=== PATIENT | female | born 1995 | race Caucasian/White ===

== ENCOUNTER 2016-06-30 19:54 | Emergency (ER) | payer SELFPAY ==
[~2016-06-30] VITALS: Ht 162.6 cm; Wt 57.4 kg
[2016-06-30 20:10] VITALS: Ht 162.6 cm; Wt 57.4 kg
--- NOTE | 2016-06-30 22:26 | ERD ---
ER Documentation Chief Complaint Date/Time DATE: 06/30/16 TIME: 22:18 Chief Complaint Cannot find her tampon x5 hour HPI This is a 20-year-old female who presents to the ED today with a possible retained tampon for 8 hours. Patient cannot remember if she took the tampon out of her vagina. Patient has tried to feel if the tampon was still in place and she cannot feel a tampon. Patient is here today to make sure she does not have a tampon left in her vagina. She started her menstrual period yesterday. Patient denies any abdominal or pelvic pain. She denies fever, vaginal discharge, dysuria, shortness of breath or palpitations, vaginal bleeding, abdominal pain, pelvic pain. ROS All systems reviewed and are negative except as per history of present illness. Allergies Allergies: Coded Allergies: No Known Allergy (Unverified , 06/30/16) PMhx/Soc Medical and Surgical Hx: pt denies Medical Hx, pt denies Surgical Hx History of Surgery: No Anesthesia Reaction: No Hx Neurological Disorder: No Hx Respiratory Disorders: No Hx Cardiac Disorders: No Hx Psychiatric Problems: No Hx Miscellaneous Medical Probl: No Hx Alcohol Use: Yes (OOC) Hx Substance Use: Yes (MJ) Hx Tobacco Use: Yes Smoking Status: Current every day smoker FmHx Noncontributory to chief complaint. Physical Exam Vitals temp 97.6 Pulse 73 SBP 102 DBP 57 Resp 18 O2 Sat 99 Pain Intensity 0 Physical Exam Const: Uos-vax-jhyqljkop, well-nourished. In no acute distress. Head: Atraumatic, normocephalic Eyes: Normal Conjunctiva without injection. No purulent discharge. ENT: Normal external ear, nose. Moist oropharynx without tonsillar exudates. Non -erythematous pharynx. Uvula midline. No drooling. No trismus. Neck: No cervical midline tenderness. Full range of motion. No meningismus. No cervical lymphadenopathy. No JVD. Resp: Clear to auscultation bilaterally. No wheezing, rhonchi, rales, or crackles. No accessory muscle use. No retractions. Cardio: Regular rate and rhythm. No murmurs, rubs or gallops. Abd: Soft, nontender to palpation, non distended. Normal bowel sounds. No palpable masses. No rebound tenderness. No guarding. Negative McBurney's point. Negative psoas sign. Negative obturator sign. : See MDM for exam. Skin: No petechiae or rashes Back: No midline tenderness. No CVA tenderness. Ext: No cyanosis, or edema. Neur: Awake and alert. Normal gait. Normal coordination. Psych: Normal Mood and Affect Procedures/MDM This is a 20-year-old female who presents the ED today for possible retained tampon for 8 hours. Patient is afebrile and nontoxic-appearing. No tachycardia noted. No hypotension noted. Patient has normal vital signs. Patient gave consent to do a pelvic exam at this time. 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 Bimanual: [No adnexal masses or tenderness, No CMT] Low suspicion for end organ damage, MRSA infection, toxic shock syndrome, symptomatic anemia, ectopic , sepsis, PID, appendicitis, ovarian torsion, tubo-ovarian abscess, surgical abdomen, or other emergent conditions. Patient was educated that there is a risk for threatened . Patient to follow up with [facility] in 2 days for further evaluation and treatment. Patient is to return sooner to the ED for any worsening symptoms. Patient's questions were answered. Patient understood and agreed with discharge plan. Departure Diagnosis: Primary Impression: Retained foreign body Condition: Stable Patient Instructions: Vaginal Foreign Body, Removed (Adult) Referrals: [facility] YOU HAVE RECEIVED A MEDICAL SCREENING EXAM AND THE RESULTS INDICATE THAT YOU DO NOT HAVE A CONDITION THAT REQUIRES URGENT TREATMENT IN THE EMERGENCY DEPARTMENT. FURTHER EVALUATION AND TREATMENT OF YOUR CONDITION CAN WAIT UNTIL YOU ARE SEEN IN YOUR DOCTORS OFFICE WITHIN THE NEXT 1-2 DAYS. IT IS YOUR RESPONSIBILITY TO MAKE AN APPOINTMENT FOR FOLOW-UP CARE. IF YOU HAVE A PRIMARY DOCTOR --you should call your primary doctor and schedule an appointment IF YOU DO NOT HAVE A PRIMARY DOCTOR YOU CAN CALL OUR PHYSICIAN REFERRAL HOTLINE AT IF YOU CAN NOT AFFORD TO SEE A PHYSICIAN YOU CAN CHOSE FROM THE FOLLOWING [facility] [address] [facility]. [facility] [address] [facility]. [facility] [address] [facility] [address] [facility]. [facility] [address] [facility]. [facility] [address] [facility]. [facility] YOU HAVE RECEIVED A MEDICAL SCREENING EXAM AND THE RESULTS INDICATE THAT YOU DO NOT HAVE A CONDITION THAT REQUIRES URGENT TREATMENT IN THE EMERGENCY DEPARTMENT. FURTHER EVALUATION AND TREATMENT OF YOUR CONDITION CAN WAIT UNTIL YOU ARE SEEN IN YOUR DOCTORS OFFICE WITHIN THE NEXT 1-2 DAYS. IT IS YOUR RESPONSIBILITY TO MAKE AN APPOINTMENT FOR FOLOW-UP CARE. IF YOU HAVE A PRIMARY DOCTOR --you should call your primary doctor and schedule and appointment IF YOU DO NOT HAVE A PRIMARY DOCTOR YOU CAN CALL OUR PHYSICIAN REFERRAL HOTLINE AT . IF YOU CAN NOT AFFORD TO SEE A PHYSICIAN YOU CAN CHOSE FROM THE FOLLOWING [facility] INSTITUTIONS: [facility] [address] [place] [address] [facility] [address] [place] [address] [facility] + [facility] [address] [place] [address] [facility] URGENT CARE[facility]SPECIALTIES [facility] [place] [address] [facility] [address] [place], [place] [id number] OFFICE FAX ABDIAS TAYLOR [address] [place], [place] [id number] DR. RODAS BROADALBIN [address] [place], [place] [id number] JB MARTINEZ [address] [facility], [address] [address] [address]AMOR[address] [address] [place] [id number] [facility] [address] [place] [address] [address] [facility] [id number] - DR BATISTA REBECCA [address], [facility] [address] [address] SMITH, [place] [address] [facility]. [address], [facility] [address] [address]LES, [facility] [address] [place] [address] [facility] Hours: 8:00 am - 5:00 pm Additional Instructions: FOLLOW UP WITH YOUR PRIMARY CARE PHYSICIAN TOMORROW.Return to this facility if you are not improving as expected. PRADEEP BASS PA-C Jun 30, 2016 22:25 PRADEEP BASS PA-C Jun 30, 2016 22:25
[2016-07-01 00:18] VITALS: BP 115/87; PULSE 88; RESP 18; TEMP 98.8
== END 2016-07-01 00:18 | disposition home or self-care (01) ==
LOC: FTE 19:54
DX: T19.2XXA Foreign body in vulva and vagina, initial encounter (principal); F17.210 Nicotine dependence, cigarettes, uncomplicated; X58.XXXA Exposure to other specified factors, initial encounter; Y92.9 Unspecified place or not applicable
CPT/HCPCS: 99284